=== PATIENT | female | born 1995 | race Asian ===

== ENCOUNTER 2017-05-25 15:15 | Inpatient (IN) | payer OTHER ==
[~2017-05-25] VITALS: Ht 144.8 cm; Wt 44.9 kg
[~2017-05-25 15:15] MED LIST: CLEOCIN HC150 MG/CAP; DAZIDOX10 MG PO; GLUCOPHAGE500 MG/TAB; GLUCOPHAGE500 MG/TAB PO; INSLANT SC; LANTUS100 U/ML SC
[2017-05-25 17:10] LABS: BASO # 0.1 (0.0-0.2); BASO % 0.3 % (0.0-2.0); GRAN # 12.3 (1.4-6.5); GRAN % 82.7 % (42.2-75.2); HEMATOCRIT 40.4 % (37.0-47.0); HEMOGLOBIN 13.6 g/dl (12.5-16.0); LYMPH # 1.4 (1.2-3.4); LYMPH % 9.4 % (20.0-51.0); MEAN CELL VOLUME 75 fl (80.0-100.0); MEAN CORPUSCULAR HEMOGLOBIN 25 pg (27.0-31.0); MEAN CORPUSCULAR HGB CONC 34 g/dl (33.0-37.0); MEAN PLATELET VOLUME 10.7 fl (7.4-10.4); MONO % 6.7 % (1.7-9.3); PLATELET COUNT 250 K/mm3 (130-400); REDCELL DISTRIBUTION WIDTH-CV 12.2 % (11.5-14.5); WHITE BLOOD COUNT 14.9 K/mm3 (4.8-10.8)
[2017-05-25 17:14] LABS: PH 5 (5-8); URINE APPEARANCE Hazy; URINE BACTERIA Occasional /hpf; URINE BILIRUBIN Negative (NEGATIVE); URINE BLOOD Negative (NEGATIVE); URINE COLOR Yellow; URINE GLUCOSE 3+ (NEGATIVE); URINE KETONE 2+ (NEGATIVE); URINE UROBILINOGEN Negative (NEGATIVE)
[2017-05-25 17:15] LABS: ADJUSTED CALCIUM 10.5 mg/dL (8.4-10.2); ALANINE AMINOTRANSFERASE 30 U/L (9-52); ALBUMIN 4.6 gm/dL (3.5-5.0); ALKALINE PHOSPHATASE 120 U/L (50-136); ANION GAP 19 mmol/L (7-16); BILIRUBIN,TOTAL 1.7 mg/dL (0.0-1.0); BLOOD UREA NITROGEN 13 mg/dL (7-17); CARBON DIOXIDE 22 mmol/L (22-30); CHLORIDE 93 mmol/L (98-107); CREATININE, serum 0.55 mg/dL (0.52-1.25); GLUCOSE 334 mg/dL (74-106); LIPASE 33 U/L (23-300); POTASSIUM 3.8 mmol/L (3.4-5.0); SODIUM 134 mmol/L (137-145); TOTAL PROTEIN 9.5 gm/dL (6.4-8.2)
[2017-05-25 17:59] LABS: VENOUS BLOOD GAS BE -3.8 (-4-4); VENOUS BLOOD GAS SAO2 40.8 % (60-80)
[2017-05-25 18:00] LABS: VENOUS BLOOD GAS SITE VENIPUNCTURE
[2017-05-25 21:29] VITALS: BP 104/65; PULSE 125; TEMP 100.5
[2017-05-25] MEDS ORDERED: MOTRIN 200200 MG/TAB PO (22:24)
[2017-05-26 00:30] VITALS: BP 121/83; PULSE 101; TEMP 99.8
[2017-05-26 05:00] VITALS: BP 119/79; PULSE 122; TEMP 100.7
[2017-05-26 07:43] VITALS: BP 121/85; PULSE 93; TEMP 99.5
[2017-05-26 08:59] LABS: BASO % 0.1 % (0.0-2.0); EOS % 0.1 % (0-4.0); GRAN % 73.5 % (42.2-75.2); LYMPH # 1.4 (1.2-3.4); LYMPH % 17.7 % (20.0-51.0); MEAN CELL VOLUME 75 fl (80.0-100.0); MEAN CORPUSCULAR HGB CONC 34 g/dl (33.0-37.0); MEAN PLATELET VOLUME 10.6 fl (7.4-10.4); MONO # 0.6 (0.1-0.6); MONO % 7.7 % (1.7-9.3); PLATELET COUNT 180 K/mm3 (130-400); RED BLOOD COUNT 3.97 M/mm3 (4.10-5.30); WHITE BLOOD COUNT 8.1 K/mm3 (4.8-10.8)
[2017-05-26 09:01] LABS: HEMATOCRIT 29.6 % (37.0-47.0); MEAN CORPUSCULAR HEMOGLOBIN 25 pg (27.0-31.0)
[2017-05-26 09:07] LABS: CALCIUM 8.7 mg/dL (8.4-10.2); CREATININE, serum 0.54 mg/dL (0.52-1.25); POTASSIUM 3.6 mmol/L (3.4-5.0)
[2017-05-26 11:27] VITALS: BP 135/94; PULSE 92; TEMP 97.5
[2017-05-26 16:12] VITALS: BP 130/90; PULSE 110; TEMP 100.1
[2017-05-26 19:48] VITALS: BP 119/89; PULSE 87; TEMP 99.3
[2017-05-27 00:21] VITALS: BP 125/84; PULSE 112; TEMP 98.6
[2017-05-27 04:21] VITALS: BP 133/88; PULSE 92; TEMP 100.9
[2017-05-27 07:34] VITALS: BP 154/98; PULSE 77; TEMP 98.5
[2017-05-27 08:02] LABS: BASO % 0.2 % (0.0-2.0); EOS % 0.2 % (0-4.0); GRAN # 3.3 (1.4-6.5); GRAN % 59.7 % (42.2-75.2); LYMPH # 1.5 (1.2-3.4); LYMPH % 27.8 % (20.0-51.0); MEAN CELL VOLUME 75 fl (80.0-100.0); MEAN CORPUSCULAR HGB CONC 33 g/dl (33.0-37.0); MEAN PLATELET VOLUME 10.9 fl (7.4-10.4); MONO # 0.6 (0.1-0.6); MONO % 10.7 % (1.7-9.3); PLATELET COUNT 192 K/mm3 (130-400); RED BLOOD COUNT 3.82 M/mm3 (4.10-5.30); REDCELL DISTRIBUTION WIDTH-CV 12.3 % (11.5-14.5); WHITE BLOOD COUNT 5.5 K/mm3 (4.8-10.8)
[2017-05-27 08:05] LABS: HEMATOCRIT 28.7 % (37.0-47.0); HEMOGLOBIN 9.6 g/dl (12.5-16.0); MEAN CORPUSCULAR HEMOGLOBIN 25 pg (27.0-31.0)
[2017-05-27 08:16] LABS: CALCIUM 8.6 mg/dL (8.4-10.2); CREATININE, serum 0.47 mg/dL (0.52-1.25); POTASSIUM 3.3 mmol/L (3.4-5.0)
[2017-05-27 11:05] VITALS: BP 136/100; PULSE 92; TEMP 98.2
[2017-05-27 16:43] VITALS: BP 142/97; PULSE 101; TEMP 99.5
[2017-05-27 20:43] VITALS: BP 128/97; PULSE 102; TEMP 99
[2017-05-28 01:35] VITALS: BP 137/94; PULSE 93; TEMP 98.2
[2017-05-28 05:59] LABS: MEAN CELL VOLUME 75 fl (80.0-100.0); MEAN CORPUSCULAR HGB CONC 34 g/dl (33.0-37.0); MEAN PLATELET VOLUME 10.3 fl (7.4-10.4); PLATELET COUNT 267 K/mm3 (130-400); RED BLOOD COUNT 4.14 M/mm3 (4.10-5.30); REDCELL DISTRIBUTION WIDTH-CV 12.3 % (11.5-14.5); WHITE BLOOD COUNT 6.4 K/mm3 (4.8-10.8)
[2017-05-28 06:11] LABS: ADD PATHOLOGY DIFF REVIEW NO; HEMOGLOBIN 10.4 g/dl (12.5-16.0); MEAN CORPUSCULAR HEMOGLOBIN 25 pg (27.0-31.0)
[2017-05-28 06:16] LABS: CALCIUM 9.2 mg/dL (8.4-10.2); CREATININE, serum 0.51 mg/dL (0.52-1.25); MAGNESIUM 1.9 mg/dL (1.6-2.3); POTASSIUM 3.4 mmol/L (3.4-5.0)
[2017-05-28 06:21] VITALS: BP 141/94; PULSE 87; TEMP 98.3
[2017-05-28 07:19] LABS: BAND 28 % (0-10); METAMYELOCYTE 1 % (0-0); NEUTROPHILS 35 % (42.0-75.2); PLATELET ESTIMATE NORMAL (NORMAL); TOTAL CELLS COUNTED 100
[2017-05-28 07:20] LABS: HYPOCHROMIA 1+; MICROCYTOSIS 2+; OVALOCYTES 1+
[2017-05-28 08:27] VITALS: BP 135/94; PULSE 88; TEMP 97.9
[2017-05-28] MEDS ORDERED: GLUCOTROL 5M5 MG/TAB PO (11:31)
[2017-05-28] MEDS ORDERED: GLUCOPHAGE500 MG/TAB PO (11:32)
[2017-05-28] MEDS ORDERED: LEVAQUIN 750MG750 M1 PO (11:33)
== END 2017-05-28 12:20 | disposition home or self-care (01) | DRG 690 ==
LOC: COL.ER 15:15 → MEDICAL 20:18
PROVIDERS: Emergency Medicine; Family Medicine; Physician Assistant
DX: N10 Acute pyelonephritis (principal); E11.9 Type 2 diabetes mellitus without complications; B96.20 Unspecified Escherichia coli [E. coli] as the cause of diseases classified elsewhere; E87.6 Hypokalemia; D64.9 Anemia, unspecified
CPT/HCPCS: 99222-AI; 99231-AI; 99239; J0696; J1650; J1815; J2405; J3010; J3475; J7030; Q9967

== ENCOUNTER → 2018-05-02 | Outpatient (CLI) | payer BC ==
[~2018-05-02] MED LIST changes: +GLUCOTROL 5M5 MG/TAB PO; +LEVAQUIN 750MG750 M1 PO; +MOTRIN 200200 MG/TAB PO
== END ==
LOC: COL.CARD 07:16
DX: E11.9 Type 2 diabetes mellitus without complications (principal)